=== PATIENT | female | born 1970 | race Caucasian/White ===

== ENCOUNTER 2020-04-30 12:41 | Emergency (ER) | payer MEDICAID ==
[~2020-04-30] VITALS: Ht 160 cm; Wt 78.5 kg
[2020-04-30 13:26] VITALS: BP 129/85; Ht 160 cm; Wt 78.5 kg
[2020-04-30 15:29] LABS: BASOPHIL % 0.6 % (0.2-1.3); PLATELET COUNT 240 x10^3mcL (179-408); RED CELL DISTRIBUTION WIDTH 14.5 % (12.3-17.7)
[2020-04-30 15:59] LABS: GFR1 > 60 mL/min; SODIUM SERUM 138 mmol/L (136-145)
[2020-04-30 16:01] LABS: CHLORIDE SERUM 101 mmol/L (98-107); CREATININE SERUM 0.7 mg/dL (0.6-1.0); GLUCOSE SERUM 80 mg/dL (74-106); POTASSIUM SERUM 3.9 mmol/L (3.5-5.1)
[2020-04-30 16:21] LABS: ALBUMIN 3.9 g/dL (3.4-5.0); ALKALINE PHOSPHATASE 80 U/L (46-116); ALT/SGPT 22 U/L (14-59); AST/SGOT 27 U/L (15-37); BILIRUBIN TOTAL 0.3 mg/dL (0.20-1.00)
[2020-04-30 16:22] LABS: LIPASE 221 IU/L (73-393)
== END 2020-04-30 17:40 | disposition home or self-care (01) ==
LOC: ED 12:41
DX: K80.20 Calculus of gallbladder without cholecystitis without obstruction (principal)
CPT/HCPCS: J1885